=== PATIENT | male | born 1945 | race Caucasian/White ===

== ENCOUNTER 2022-04-08 11:00 | Emergency (ER) | payer MEDICARE, OTHER ==
[2022-04-08] MEDS ORDERED: Sodium Chloride 0.9% 10 ML Syringe FLUSH PRN (11:56)
[2022-04-08 12:36] LABS: HEMOGLOBIN A1C 5.6 %
[2022-04-08 12:49] LABS: ESTIMATED GFR 69 mL/min (>60)
[2022-04-08] MEDS ORDERED: Aspirin 81 MG Tab.Chew PO ONE (13:28)
[2022-04-08] MEDS ORDERED: Clopidogrel 75 MG Tab PO ONE (13:28)
== END 2022-04-08 13:50 | disposition home or self-care (01) ==
LOC: JD.ED 11:00
DX: I63.411 Cerebral infarction due to embolism of right middle cerebral artery (principal); I10 Essential (primary) hypertension; Z79.899 Other long term (current) drug therapy; Z79.82 Long term (current) use of aspirin
CPT/HCPCS: 36415; 70450; 80053; 80061; 83036; 83735; 83880; 85025; 85610; 85730; 86140; 93005; 99285; A9270; J3490